=== PATIENT | female | born 1955 | race Caucasian/White ===

== ENCOUNTER 2018-11-14 09:48 | Outpatient (CLI) | payer BC ==
[~2018-11-14] VITALS: Ht 162 cm; Wt 70.9 kg
[~2018-11-14 09:48] MED LIST: ALPR.5T PO; ASP81CT PO; ATOR40TA PO; ESTR1TAB66 PO; OXYC1TAB87 PO; no home medications
[2018-11-14] MEDS ORDERED: FLUT9.9S NS (10:04)
[2018-11-14] MEDS ORDERED: LORA10TA7 PO (10:04)
[2018-11-14 10:07] VITALS: BP 114/75
[2018-11-14 10:27] LABS: BASOPHILS % (AUTO) 0 % (0-10); EOSINOPHILS # (AUTO) 0.1 10^3/uL (0.0-0.3); EOSINOPHILS % (AUTO) 1 % (0-10); HEMATOCRIT 43 % (35-52); HEMOGLOBIN 14.3 G/DL (11.5-16.0); LYMPHOCYTES # (AUTO) 2.5 X 10^3 (1.0-4.0); LYMPHOCYTES % (AUTO) 24 % (12-44); MEAN CORPUSCULAR HEMOGLOBIN 29 PG (25-34); MEAN CORPUSCULAR HGB CONC 33 G/DL (32-36); MEAN CORPUSCULAR VOLUME 88 FL (80-99); MONOCYTES % (AUTO) 9 % (0-12); NEUTROPHILS # (AUTO) 6.9 X 10^3 (1.8-7.8); NEUTROPHILS % (AUTO) 66 % (42-75); PLATELET COUNT 237 10^3/uL (130-400); RED CELL DISTRIBUTION WIDTH 13.4 % (10.0-14.5); WHITE BLOOD COUNT 10.5 10^3/uL (4.3-11.0)
[2018-11-14 10:59] LABS: BUN/CREATININE RATIO 8; CALCIUM 9.3 MG/DL (8.5-10.1); CARBON DIOXIDE 23 MMOL/L (21-32); CHLORIDE 108 MMOL/L (98-107); CREATININE SERUM 0.76 MG/DL (0.60-1.30); GFR ESTIMATED > 60; GLUCOSE 91 MG/DL (70-105); POTASSIUM 4.2 MMOL/L (3.6-5.0); SODIUM 139 MMOL/L (135-145)
--- NOTE | 2018-11-14 11:07 | Diagnostic Imaging Report ---
INDICATION: Preoperative evaluation prior to septoplasty. PA and lateral views of the chest are obtained with comparison made study of 05/22/2013. FINDINGS: Heart size and pulmonary vascularity are within normal limits, and the lungs are clear, bilaterally. IMPRESSION: Unremarkable chest. Dictated by: Dictated on workstation # [id number]
== END 2018-11-14 12:30 | disposition home or self-care (01) ==
LOC: PREOP 09:48
PROVIDERS: ATTEND Otolaryngology Otolaryngology/Facial Plastic Surgery
DX: Z01.818 Encounter for other preprocedural examination (principal); J34.3 Hypertrophy of nasal turbinates
CPT/HCPCS: 36415; 71046; 80048; 85025; 87081; 93005

== ENCOUNTER 2018-11-20 07:28 | Day surgery (SDC) | payer BC ==
[2018-11-20] VITALS (10 sets, daily range): BP systolic 106–132; BP diastolic 60–86
[~2018-11-20 07:28] MED LIST changes: +FLUT9.9S NS; +LORA10TA7 PO
[2018-11-20] MEDS ORDERED: LIDOCAINE/EPI 1%-1:100,000 (XYLOCAINE) 20ML ONE (07:37)
[2018-11-20] MEDS ORDERED: PHENYLEPHRINE 0.5% NASAL SPR (NEO-SYNEPHRINE) REG ONE (07:37)
[2018-11-20] MEDS ORDERED: COCAINE HCL 4% 2 ML SYR ONE ×2 (07:37→07:42)
[2018-11-20] MEDS ORDERED: LACTATED RINGERS 1,000 ML IV PRN (07:43)
[2018-11-20] MEDS ORDERED: fentaNYL INJECTION 100 MCG/2 ML AMP ONE (07:45)
[2018-11-20] MEDS ORDERED: MIDAZOLAM 2 MG/2 ML (VERSED) VIAL ONE (07:45)
--- NOTE | 2018-11-20 07:51 | Progress Note-Pre Operative ---
Pre-Operative Progress Note H&P Reviewed The H&P was reviewed, patient examined and no changes noted. 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
[2018-11-20] MEDS ORDERED: LIDOCAINE PF 2% 5 ML (XYLOCAINE) VIAL ONE (07:53)
[2018-11-20] MEDS ORDERED: proPOfol 200 MG/20 ML (DIPRIVAN) VIAL IV ONE (07:53)
[2018-11-20] MEDS ORDERED: GLYCOPYRROLATE 0.2 MG/ML (ROBINUL) 2 ML VIAL ONE (07:53)
[2018-11-20] MEDS ORDERED: ROCURONIUM 10 MG/ML 5 ML SYRINGE IV ONE (07:53)
[2018-11-20] MEDS ORDERED: NEOSTIGMINE 3 MG/3 ML VIAL ONE (07:53)
[2018-11-20] MEDS ORDERED: DEXAMETHASONE 10 MG/ML (DECADRON) 1 ML VIAL ONE (07:53)
[2018-11-20] MEDS ORDERED: ONDANSETRON 4 MG/2 ML (SDV) Z0FRAN ONE (07:53)
[2018-11-20] MEDS ORDERED: SEVOFLURANE (ULTANE) 15 ML INHAL SOLN ONE ×2 (07:53→08:57)
[2018-11-20] MEDS ORDERED: PHENYLEPHRINE 100 MCG/ML 10 ML (ANESTHESIA) SYR ONE (08:42)
--- NOTE | 2018-11-20 08:52 | Progress Note-Post Operative ---
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 Specimen(s) collected/removed nasal septum MANJEET TAMEZ MD Nov 20, 2018 08:52
[2018-11-20] MEDS ORDERED: D5 1/2 NS W/KCL 20 MEQ/L 1,000 ML IV SCH (08:55)
[2018-11-20] MEDS ORDERED: PROMETHAZINE INJ 25 MG/ML (PHENERGAN) AMP IVP PRN (09:00)
[2018-11-20] MEDS ORDERED: ACETAMINOPHEN 325 MG TABLET PO PRN (09:00)
[2018-11-20] MEDS ORDERED: HYDROcodone/APAP 5 MG/325 MG (LORTAB) TAB PO PRN (09:00)
[2018-11-20] MEDS ORDERED: morphine INJ 10 MG/ML 1ML (SYR OR VIAL) IVP ONE (09:15)
[2018-11-20] MEDS: ONDANSETRON 4 MG/2 ML (SDV) Z0FRAN IVP PRN ×2 (10:01→10:02)
[2018-11-20] MEDS ORDERED: HYDR-3062 PO (10:15)
[2018-11-20] MEDS ORDERED: AMOX-355 PO (10:15)
--- NOTE | 2018-11-20 11:32 | Anesthesia-General Post-Op ---
General Patient Condition Mental Status/LOC: Same as Preop Cardiovascular: Satisfactory Nausea/Vomiting: Absent Respiratory: Satisfactory Pain: Controlled Complications: Absent Post Op Complications Complications None Follow Up Care/Instructions Patient Instructions None needed. Anesthesia/Patient Condition Patient Condition Patient is doing well, no complaints, stable vital signs, no apparent adverse anesthesia problems. No complications reported per nursing. DERRICK FOOTE CRNA Nov 20, 2018 11:32
== END 2018-11-20 11:00 | disposition home or self-care (01) ==
LOC: SDC 07:28
PROVIDERS: ATTEND Otolaryngology Otolaryngology/Facial Plastic Surgery
DX: J34.2 Deviated nasal septum (principal); J34.3 Hypertrophy of nasal turbinates; R09.81 Nasal congestion; F17.210 Nicotine dependence, cigarettes, uncomplicated; Z82.49 Family history of ischemic heart disease and other diseases of the circulatory system; Z82.3 Family history of stroke; Z88.8 Allergy status to other drugs, medicaments and biological substances; M19.90 Unspecified osteoarthritis, unspecified site; Z90.710 Acquired absence of both cervix and uterus; Z90.721 Acquired absence of ovaries, unilateral
CPT/HCPCS: 88300

== ENCOUNTER → 2021-07-18 | Outpatient (RCR) | payer BC ==
[~2021-07-18] MED LIST changes: +ACHD5005 PO; +AMOX-355 PO
== END | disposition home or self-care (01) ==
PROVIDERS: ATTEND Registered Nurse
DX: M51.27 Other intervertebral disc displacement, lumbosacral region (principal); M48.04 Spinal stenosis, thoracic region

== ENCOUNTER → 2022-04-05 | Outpatient (CLI) | payer BC ==
--- NOTE | 2022-04-05 14:50 | Diagnostic Imaging Report ---
INDICATION: One-year history pain FINDINGS: 2 view left hip performed. No fracture, dislocation or acute bone irregularity. IMPRESSION: Unremarkable 2 view left hip. Dictated by: Dictated on workstation # [id number]
== END ==
LOC: ORTHO 08:57
PROVIDERS: ATTEND Orthopaedic Surgery
DX: M25.552 Pain in left hip (principal)
CPT/HCPCS: 73502; G0463; 99203